=== PATIENT | male | born 1955 | race Caucasian/White ===

== ENCOUNTER 2018-04-08 10:54 | Emergency (ER) | payer MEDICAID ==
[~2018-04-08] VITALS: Ht 167.6 cm; Wt 68.2 kg
[2018-04-08 11:06] VITALS: Ht 167.6 cm; Wt 68.2 kg
[2018-04-08] MEDS ORDERED: OMEPRAZOLE40 MG PO ×2 (13:56→13:58)
[2018-04-08] MEDS ORDERED: VOLTAREN75 MG PO (13:57)
[2018-04-08] MEDS ORDERED: STERAPRED 5MG 65 M1 PO (13:57)
[2018-04-08 14:18] VITALS: BP 121/87
== END 2018-04-08 14:18 | disposition home or self-care (01) ==
LOC: D.ER 10:54
DX: M79.604 Pain in right leg (principal); F17.200 Nicotine dependence, unspecified, uncomplicated